=== PATIENT | male | born 1975 | race Two or more races ===

== ENCOUNTER → 2025-04-03 | Outpatient (CLI) | payer OTHER ==
[2025-04-03 07:59] LABS: Albumin 4.3 g/dL (3.2-4.8); Alkaline Phosphatase 51 U/L (46-116); Anion Gap 7 (5-15); BUN/Creatinine Ratio 12.1 (10.0-20.0); Bilirubin, Total 0.7 mg/dL (0.2-1.0); Blood Urea Nitrogen 13 mg/dL (9-23); Calcium 9.4 mg/dL (8.7-10.4); Carbon Dioxide 27 mmol/L (20-31); Chloride 102 mmol/L (98-107); HDL Cholesterol 42 mg/dL (40-59); Potassium 4.4 mmol/L (3.5-5.1); Sodium 136 mmol/L (136-145); Total Protein 6.4 g/dL (5.7-8.2)
[2025-04-03 08:02] LABS: Alanine Aminotransferase 43 U/L (7-40); Cholesterol 208 mg/dL (< 200); Glucose 172 mg/dL (74-106); Triglycerides 221 mg/dL (< 150)
[2025-04-03 08:29] LABS: Mean Corpuscular Hemoglobin 27.5 pg (28.0-32.0)
[2025-04-03 08:32] LABS: Hematocrit 55.5 % (41.0-53.0); Hemoglobin 18.9 g/dL (13.5-17.5); Mean Corpuscular Volume 80.6 fL (80.0-100.0); Nucleated Red Blood Cells % 0.1 %
[2025-04-03 11:12] LABS: Hepatitis A Total Antibody Negative (Negative); Hepatitis B Surface Antigen Negative (Negative); Hepatitis C Antibody Negative (Negative)
== END | disposition home or self-care (01) ==
LOC: LAB 07:20
PROVIDERS: ATTEND Licensed Practical Nurse
DX: E55.9 Vitamin D deficiency, unspecified (principal); Z13.6 Encounter for screening for cardiovascular disorders; Z13.29 Encounter for screening for other suspected endocrine disorder; Z13.220 Encounter for screening for lipoid disorders; Z13.1 Encounter for screening for diabetes mellitus; Z00.01 Encounter for general adult medical examination with abnormal findings
CPT/HCPCS: 36415; 80053; 80061; 82043; 82274; 82306; 83036; 84153; 84443; 85025; 86704; 86706; 86708; 86803; 87340

== ENCOUNTER 2025-07-07 08:55 | Outpatient (CLI) | payer OTHER ==
[2025-07-07 10:07] LABS: Mean Corpuscular Hemoglobin 26.8 pg (28.0-32.0)
[2025-07-07 10:10] LABS: Hematocrit 55.3 % (41.0-53.0); Hemoglobin 18.4 g/dL (13.5-17.5); Mean Corpuscular Volume 80.5 fL (80.0-100.0); Nucleated Red Blood Cells % 0.5 %
[2025-07-07 10:17] LABS: Protein, Urine 49.3 mg/dL (1-14)
[2025-07-07 10:23] LABS: Alkaline Phosphatase 95 U/L (46-116); Anion Gap 11 (5-15); BUN/Creatinine Ratio 6.0 (10.0-20.0); Calcium 8.8 mg/dL (8.7-10.4); Carbon Dioxide 22 mmol/L (20-31)
[2025-07-07 10:24] LABS: Total Protein 7.3 g/dL (5.7-8.2)
[2025-07-07 10:25] LABS: Alanine Aminotransferase 50 U/L (7-40); Albumin 4.4 g/dL (3.2-4.8); Bilirubin, Total 0.6 mg/dL (0.2-1.0); Blood Urea Nitrogen 6 mg/dL (9-23); Chloride 103 mmol/L (98-107); Cholesterol 163 mg/dL (< 200); Glucose 205 mg/dL (74-106); Potassium 4.4 mmol/L (3.5-5.1); Sodium 136 mmol/L (136-145); Triglycerides 209 mg/dL (< 150)
[2025-07-07 10:26] LABS: Microalb/Creat Ratio, Urine 84.0
[2025-07-07 10:27] LABS: HDL Cholesterol 36 mg/dL (40-59)
[2025-07-07 16:52] LABS: Iron 87.0 ug/dL (65-175)
[2025-07-07 16:54] LABS: Total Iron Binding Capacity 302.0 ug/dL (250-425)
== END 2025-07-07 17:00 | disposition home or self-care (01) ==
LOC: LAB 08:55
PROVIDERS: ATTEND Licensed Practical Nurse
DX: I10 Essential (primary) hypertension (principal); E11.9 Type 2 diabetes mellitus without complications; E78.5 Hyperlipidemia, unspecified; D75.1 Secondary polycythemia
CPT/HCPCS: 36415; 80053; 80061; 82043; 82570; 82728; 83036; 83540; 83550; 84156; 85025; 85652; 86141